=== PATIENT | female | born 1955 | race Caucasian/White ===

== ENCOUNTER 2017-12-14 23:17 | Emergency (ER) | payer OTHER, BC ==
[~2017-12-14] VITALS: Ht 162.6 cm; Wt 56.8 kg
[2017-12-15 02:35] VITALS: BP 126/70
== END 2017-12-15 02:35 | disposition home or self-care (01) | DRG 605 ==
LOC: ED 23:17
PROC: 0HQFXZZ Repair Right Hand Skin, External Approach (ICD-10-PCS; principal; 2017-12-15)
DX: S61.210A Laceration without foreign body of right index finger without damage to nail, initial encounter (principal); W26.8XXA Contact with other sharp object(s), not elsewhere classified, initial encounter; Y92.009 Unspecified place in unspecified non-institutional (private) residence as the place of occurrence of the external cause

== ENCOUNTER 2018-08-31 13:43 | Emergency (ER) | payer BC ==
[~2018-08-31] VITALS: Ht 162.6 cm; Wt 58.2 kg
[2018-08-31] MEDS ORDERED: ZOLOFT25 MG PO (14:08)
[2018-08-31] MEDS ORDERED: LIPITOR10 M1 PO (14:09)
[2018-08-31] MEDS ORDERED: FOSAMAX PLUS PO (14:10)
[2018-08-31] MEDS ORDERED: MULTIVITAMI9 PO (14:11)
[2018-08-31] MEDS ORDERED: VITAMIN C1000 MG PO (14:12)
[2018-08-31] MEDS ORDERED: SINGULAIR10 MG PO (14:13)
[2018-08-31 14:48] LABS: HEMATOCRIT 38.1 % (37.0-47.0); HEMOGLOBIN 12.8 g/dl (12.0-16.0); IMMATURE GRANULOCYTES 0.7 % (0.0-5.0); MEAN CELL VOLUME 88.8 fL CALC (80.0-100.0); MEAN CORPUSCULAR HGB 29.8 pG CALC (26.0-32.0); MEAN CORPUSCULAR HGB CONC 33.6 g/L CALC (32.0-36.0); NEUT# 6.96 thou/uL (2.00-7.15); RED BLOOD COUNT 4.29 mill/uL (4.20-5.60); RED CELL DISTRI WIDTH 12.8 % (11.5-15.5)
[2018-08-31 15:01] LABS: ALKALINE PHOSPHATASE 42 u/l (38-126); ANION GAP 11 (6-22 (CALC)); BILIRUBIN, TOTAL 0.4 mg/dL (0.0-1.4); BUN 10 mg/dL (8-23); BUN/CREATININE RATIO 17 (12-20 (CALC)); CARBON DIOXIDE 27 mmol/l (22-30); CHLORIDE 103 mmol/l (95-108); CREATININE 0.6 mg/dL (0.5-1.0); GFR > 60 ML/MIN (>=60 (CALC)); GFR FOR AFR.AMER. > 60 ML/MIN (>=60 (CALC)); POTASSIUM 4.2 mmol/l (3.5-5.1); SGOT/AST 26 u/l (9-36); SODIUM 136 mmol/l (137-146); TOTAL PROTEIN 6.7 g/dL (6.3-8.2)
[2018-08-31] MEDS ORDERED: TESSALON PER100 MG PO (16:24)
[2018-08-31] MEDS ORDERED: ZITHROMAX250 MG PO (16:24)
[2018-08-31] MEDS ORDERED: PROVENTIL108 MCG/AC IN (16:24)
[2018-08-31] MEDS ORDERED: DELTASONE20 MG PO (16:24)
[2018-08-31 16:45] VITALS: BP 114/59
== END 2018-08-31 16:45 | disposition home or self-care (01) | DRG 153 ==
LOC: ED 13:43
PROVIDERS: Emergency Medicine
DX: J06.9 Acute upper respiratory infection, unspecified (principal); R05 Cough
CPT/HCPCS: Q9967